=== PATIENT | female | born 1990 | race American Indian/Alaskan Native ===

== ENCOUNTER 2018-03-15 12:11 | Day surgery (SDC) | payer BC ==
[2018-03-15 11:56] VITALS: BMI 39.4
[2018-03-15 12:05] LABS: BASO % 0.7 % (0.0-2.0); EOS # 0.2 K/uL (0.0-0.7); EOS % 2.7 % (0.0-4.0); HEMOGLOBIN 13.4 g/dL (11.0-16.0); LYMPH # 1.3 K/uL (1.0-4.3); LYMPH % 20.2 % (20.0-40.0); MEAN CELL VOLUME 83.8 fL (81.0-99.0); MEAN CORPUSCULAR HEMOGLOBIN 28.3 pg (27.0-31.0); MEAN CORPUSCULAR HGB CONC 33.8 g/dL (33.0-37.0); MEAN PLATELET VOLUME 7.5 fL (7.2-11.7); MONO # 0.5 K/uL (0.0-0.8); MONO % 8.2 % (0.0-10.0); NEUT # 4.3 K/uL (1.8-7.0); NEUT % 68.2 % (50.0-75.0); RBC 4.72 Mil/uL (3.80-5.20); RED CELL DISTRIBUTION WIDTH 14.4 % (11.5-14.5); WHITE BLOOD COUNT 6.3 K/uL (4.8-10.8)
[2018-03-15 12:13] LABS: INR 1.1; PROTHROMBIN TIME 12.4 SECONDS (9.7-12.2)
[2018-03-15 12:19] LABS: BLOOD UREA NITROGEN 8 mg/dL (7-17); CALCIUM 8.6 mg/dl (8.6-10.4); GFR AFRICAN-AMERICAN > 60; GFR NON-AFRICAN AMERICAN > 60
[2018-03-15] MEDS ORDERED: ceFAZolin IV 2 gm in Dextrose 2 GM/50 ML BAG IVPB ONE (13:10)
[2018-03-15] MEDS ORDERED: Midazolam 2 MG/2 ML VIAL ONE (13:17)
[2018-03-15] MEDS ORDERED: Propofol 10 mg/ml Inj (20 ML) ONE (13:17)
[2018-03-15] MEDS ORDERED: Morphine 4 MG/ML VIAL ONE (13:43)
[2018-03-15] MEDS ORDERED: Phenylephrine 10 mg/ml Inj ONE (13:44)
[2018-03-15] MEDS ORDERED: HYDROmorphone 0.5 mg/0.5 ml ISec IVP PRN (13:49)
[2018-03-15 15:33] VITALS: RESP 18
[2018-03-15 16:56] VITALS: BP 100/57; PULSE 62; TEMP 97.8; O2SAT 100
--- NOTE | 2018-03-21 04:37 | OP ---
PROCEDURE DATE: 03/15/2018 NATURE OF OPERATION: Suction, dilatation and curettage. ATTENDING SURGEON: Arvind Iniguez MD CONCRETE [employer] OPERATOR HELPER: Dr. Alexandre. TYPE OF ANESTHESIA: General. PREOPERATIVE DIAGNOSIS: Missed . POSTOPERATIVE DIAGNOSIS: Missed . FINDINGS: On pelvic examination under anesthesia, the external genitalia were normal. Vagina shows bleeding. The cervix was slightly dilated. The uterus was 8-9 weeks' size of gestation directed anteriorly and moderate amount of tissue obtained. DESCRIPTION OF PROCEDURE: Under general anesthesia, the patient in dorsal lithotomy position, she was prepped and draped and catheterized in the usual sterile manner. A heavy weighted speculum was placed on the posterior vaginal vault and with the help of a Harris speculum, the anterior lip of the cervix was grasped via tenaculum. Further dilatation of the cervix was done with Hanks dilator up to #20. Then, this was followed by sharp suction curettage with a size-9 suction curettage was then done which was followed by sharp clockwise curettage of the endometrial cavity which was productive of a moderate amount of tissue. The cavity was noted to be smooth. The tissue was sent for karyotyping. The patient tolerated the procedure well and sent to recovery room in satisfactory condition. Arvind Iniguez MD
== END 2018-03-15 16:45 | disposition home or self-care (01) ==
LOC: C.SDS 12:11
PROVIDERS: ATTEND Obstetrics & Gynecology Gynecology
DX: O02.1 Missed abortion (principal)
CPT/HCPCS: 36415; 59820; 80048; 84702; 85025; 85610; 85730; 86850; 86900; 88233; 88262; J0690; J1170; J2250; J2270; J2370; J2405; J2704; J3010